=== PATIENT | male | born 1990 | race Caucasian/White ===

== ENCOUNTER 2022-05-17 05:54 | Day surgery (SDC) | payer OTHER ==
[2022-05-16 08:59] VITALS: BMI 25.7
[2022-05-17] MEDS ORDERED: EPINEPHrine 1 MG/ML AMP ONE (07:03)
[2022-05-17] MEDS ORDERED: Lidocaine 1% MPF 2 ML VIAL ONE (07:27)
[2022-05-17] MEDS ORDERED: Bupivacaine PF 0.5% 30 ML VIAL ONE (07:27)
[2022-05-17] MEDS ORDERED: Midazolam HCl 2 mg/2 ml Vial ONE (07:29)
[2022-05-17] MEDS ORDERED: Fentanyl 100 MCG/2 ML VIAL ONE ×2 (07:31→08:13)
[2022-05-17] MEDS ORDERED: CEFAZOLIN 2 GM VIAL ONE (07:50)
[2022-05-17] MEDS ORDERED: Dexmedetomidine 200 MCG/2 ML VIAL ONE (08:11)
[2022-05-17] MEDS ORDERED: PROPOFOL 20 ML ONE (08:13)
[2022-05-17] MEDS ORDERED: Ondansetron PF 4 MG/2 ML Vial ONE (08:13)
[2022-05-17] MEDS ORDERED: Dexamethasone 4 mg/ml Vial ONE (08:13)
[2022-05-17] MEDS ORDERED: Rocuronium Bromide 10 MG/ML (10ML VIAL) ONE (08:13)
[2022-05-17] MEDS ORDERED: Lidocaine 1% PF 5 ML VIAL ONE (08:13)
[2022-05-17] MEDS ORDERED: Ropivacaine 0.2% 550 ML 550 ML NERVE BLCK SCH (09:15)
[2022-05-17] MEDS ORDERED: SUGAMMADEX SODIUM 200 MG/2 ML VIAL ONE (09:20)
[2022-05-17] MEDS ORDERED: PHENYLEPHRINE-NS 100 MCG/ML 10 ML SYRINGE ONE (09:23)
[2022-05-17] MEDS ORDERED: ePHEDrine Sulfate 50 MG/10 ML VIAL ONE (09:25)
[2022-05-17] MEDS ORDERED: Ketorolac Tromethamine 30 MG/ML VIAL ONE (09:44)
== END 2022-05-17 11:50 | disposition home or self-care (01) ==
LOC: CSHSDC 05:54
PROVIDERS: ATTEND Orthopaedic Surgery
PROC: 0RNJ4ZZ Release Right Shoulder Joint, Percutaneous Endoscopic Approach (ICD-10-PCS; principal; 2022-05-17)
DX: M75.101 Unspecified rotator cuff tear or rupture of right shoulder, not specified as traumatic (principal); M75.41 Impingement syndrome of right shoulder; F32.A Depression, unspecified; Z79.899 Other long term (current) drug therapy; Z88.2 Allergy status to sulfonamides; Z88.1 Allergy status to other antibiotic agents
CPT/HCPCS: A4306; C1713; J0171; J1100; J1885; J2250; J2405; J2704; J2795; J3010; S0020

== ENCOUNTER 2022-09-03 17:09 | Emergency (ER) | payer OTHER ==
[~2022-09-03 17:09] MED LIST: Iopamidol 300 61% 100 ML VIAL FS ONE
[2022-09-03] MEDS ORDERED: Ipratropium/Albuterol 3 ML NEB ONE (18:23)
[2022-09-03] MEDS ORDERED: Ibuprofen 200 MG TAB ONE (18:23)
[2022-09-03 18:47] LABS: #Eosinphils 0.1 10x3/uL (0.0-0.5); #Monocytes 0.6 10x3/uL (0.0-1.1); #Neutrophils 4.3 10x3/uL (1.5-8.4); %Basophils 0.3 % (0.0-2.0); %Eosinophils 0.8 % (0.0-6.0); %Lymphocytes 20.1 % (18.0-47.0); %Neutrophils 68.3 % (40.0-75.0); Mean Corpuscular HGB CONC 35.5 g/dL (32.0-36.0); Mean Corpuscular Hemoglobin 31.1 pg (27.0-33.0); Mean Corpuscular Volume 87.7 fl (81.2-95.1); Mean Platelet Volume 9.5 fl (7.4-10.4); Platelet Count 327 10x3/uL (150-450); RBC Distribution Width 12.7 % (11.5-14.5); Red Blood Cell (RBC) Count 5.78 10x6/uL (4.32-5.72); White Blood Cell (WBC) Count 6.3 10x3/uL (3.5-10.5)
[2022-09-03 19:15] LABS: ALT (SGPT) 66 U/L (8-55); AST (SGOT) 38 U/L (5-34); Albumin 4.8 g/dL (3.5-5.0); Alkaline Phosphatase 77 U/L (40-110); Anion Gap 16 mmol/L (10-20); BUN (Urea Nitrogen) 11 mg/dL (8.9-20.6); Bilirubin, Total 0.9 mg/dL (0.2-1.2); Calc. Creatinine Clearance 0 mL/min (70-130); Calcium 9.9 mg/dL (7.8-10.44); Carbon Dioxide 23 mmol/L (22-29); Chloride 106 mmol/L (98-107); Estimated GFR 122; Globulin 3.2 g/dL (2.4-3.5); Glucose 85 mg/dL (70-105); Potassium 3.9 mmol/L (3.5-5.1); Sodium 141 mmol/L (136-145)
== END 2022-09-03 20:50 | disposition home or self-care (01) ==
LOC: CSHERS 17:09
DX: J01.90 Acute sinusitis, unspecified (principal); R42 Dizziness and giddiness; F17.210 Nicotine dependence, cigarettes, uncomplicated
CPT/HCPCS: 70470; 71045; 80053; 85025; 96360; J7620; Q9967